=== PATIENT | female | born 1990 | race Hispanic/Latino ===

== ENCOUNTER 2018-03-31 17:36 | Emergency (ER) | payer OTHER ==
[~2018-03-31] VITALS: Ht 157.5 cm; Wt 75.8 kg
[~2018-03-31 17:36] MED LIST: ELIMITE5% TOP; IBUPROFEN800 MG PO; MELOXICAM15 M1 PO; PARAGARD T 3801 EACH; PERCOCET 325 MG1 TA2 PO; PRENATAL1 TA2 PO; VENTOLIN HFA18 GM INH
[2018-03-31 17:39] VITALS: BP 116/79
[2018-03-31 18:28] LABS: BASOPHIL % 0.9 % (0.0-2.0); EOSINOPHIL % 1.1 % (0-5); GRANULOCYTE % 62.6 % (42.2-75.2); HEMATOCRIT 36.4 % (37-47); MEAN CORPUSCULAR HGB 27.8 PG (27.0-31.0); MEAN CORPUSCULAR HGB CONC 33.1 G/DL (33.0-37.0); MEAN PLATELET VOLUME 7.7 FL (7.4-10.4); PLATELET COUNT 314 /CUMM (130-400); RBC DISTRIBUTION WIDTH 13.9 % (11.5-14.5); RED BLOOD CELL CT 4.33 /CUMM (4.20-5.40); WHITE BLOOD CELL COUNT 6.3 /CUMM (4.8-10.8)
--- NOTE | 2018-03-31 20:07 | RADIOLOGY REPORT ---
EXAMINATION: XR CHEST CLINICAL INFORMATION: Chest pressure COMPARISON: 05/13/2015 TECHNIQUE: 2 views of the chest were obtained. FINDINGS: No significant abnormality is noted involving the heart, lungs, mediastinum, bony thorax or soft tissues. IMPRESSION: Unremarkable examination.
--- NOTE | 2018-04-13 14:17 | ED ANIMAL BITE/WOUND CHECK ---
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 PT ALSO STATES THAT " SINCE IM HERE CAN YOU CHECK ME DUE TO I HAVE BEEN FEELING TIRED AND SOMETHIMES I GET SOB. Triage Nurses Notes Reviewed? yes : No Patient currently breastfeeds: No HPI: 27-year-old -[place] female who was working at her dentist's office when she picked up a bur-like instrument and stuck her finger. She bled a small amount. She was concerned regarding possible post exposure prophylaxis for hepatitis and HIV however her risks are very low. She also complains of generalized fatigue and intermittent shortness of breath with increasing sense of anxiety. Past History Travel History Traveled to [place] past 21 day No Medical History Any Pertinent Medical History? none Neurological: NONE EENT: NONE Cardiovascular: NONE Respiratory: NONE Gastrointestinal: NONE Hepatic: NONE Renal: NONE Musculoskeletal: NONE Psychiatric: NONE Blood Disorders: NONE Cancer(s): hodgkins lymphoma Surgical History Surgical History: Psychosocial History What is your primary language Japanese Tobacco Use: Never used ETOH Use: denies use Illicit Drug Use: denies illicit drug use Family History Hx Contributory? No Review of Systems Review of Systems Constitutional: Reports: see HPI. Denies: no symptoms, chills, diaphoresis, fever, malaise, weakness, unexplained weight loss. Physical Exam Physical Exam General Appearance: well developed/nourished, no apparent distress, alert, awake , anxious Head: atraumatic, normal appearance Eyes: Bilateral: normal appearance, PERRL, EOMI. Ears, Nose, Throat: normal pharynx Neck: supple, full range of motion Respiratory: no respiratory distress Cardiovascular: regular rate/rhythm Gastrointestinal: soft, non-tender Extremities: normal range of motion Neurologic/Psych: no motor/sensory deficits, awake, alert, oriented x 3, normal gait Skin: intact, normal color, warm/dry Progress Differential Diagnosis: Post exposure prophylaxis Plan of Care: Discussed PEP recommendations. Departure Departure Disposition: HOME OR SELF CARE Condition: Stable Clinical Impression Primary Impression: Dyspnea Secondary Impressions: Abrasion of right hand Referrals: Patient Has No Primary Care Dr (PCP/Family) Additional Instructions: Consider mindfulness meditation as discussed. See your primary care doctor for follow up care. Departure Forms: Customer Survey General Discharge Information
== END 2018-03-31 21:19 ==
LOC: ERH 17:36
PROVIDERS: Physician Assistant Medical
DX: S60.511A Abrasion of right hand, initial encounter (principal); R06.00 Dyspnea, unspecified; W45.8XXA Other foreign body or object entering through skin, initial encounter; Y92.89 Other specified places as the place of occurrence of the external cause; Y93.9 Activity, unspecified
CPT/HCPCS: 71046; 81025; 86803; 87389; 93005; 93010; J1885